=== PATIENT | male | born 1965 | race Caucasian/White ===

== ENCOUNTER 2024-01-16 06:46 | Day surgery (SDC) | payer BC, SELFPAY ==
[2024-01-16] VITALS (8 sets, daily range): BP systolic 133–157; BP diastolic 90–101; BMI 32.1
[2024-01-16] MEDS: TYLENOL 1000 MG PO (10:13)
--- NOTE | 2024-01-16 13:51 | W.IMMPOSTOP ---
Surgical Immed Post Op Note
-
Primary Surgeon: Sukhwinder De La Rosa MD
Assisting Surgeon:
Pre-op Diagnosis: right knee lateral meniscal tear
Post-op Diagnosis: right lateral meniscal tear
Procedure Performed: right knee arthroscopic partial lateral meniscectomy
Anesthesia Type: general
Specimen / Cultures: none
Estimated Blood Loss: 5mL
Complications: none apparent
Operative Findings: complex lateral meniscal tear
Operative dictation #: [id number]
== END 2024-01-16 15:38 | disposition home or self-care (01) ==
LOC: SDS 06:46
PROVIDERS: ATTENDING PHYSICIAN Student in an Organized Health Care Education/Training Program
DX: S83.271A Complex tear of lateral meniscus, current injury, right knee, initial encounter (principal); X58.XXXA Exposure to other specified factors, initial encounter
CPT/HCPCS: 29881

== ENCOUNTER 2024-10-03 05:49 | Day surgery (SDC) | payer BC, SELFPAY ==
[2024-09-22 14:01] VITALS: BMI 32.5
[2024-10-03 06:05] VITALS: BP 132/82; BMI 32.5
[2024-10-03] MEDS: TYLENOL 1000 MG PO (06:18)
[2024-10-03] MEDS: CELEBREX 200 MG PO (06:18)
[2024-10-03] MEDS: NORMOSOL-R/PLASMALYTE-A 1000 IV (06:18)
[2024-10-03 08:15] VITALS: BP 104/80; BP 132/82
[2024-10-03 08:30] VITALS: BP 127/80
[2024-10-03 08:42] VITALS: BP 120/89
[2024-10-03 09:15] VITALS: BP 143/95
[2024-10-03 09:45] VITALS: BP 143/94
== END 2024-10-03 09:55 | disposition home or self-care (01) ==
LOC: SDS 05:49
PROVIDERS: ATTENDING PHYSICIAN Specialist; FAMILY PHYSICIAN Internal Medicine
DX: S83.281A Other tear of lateral meniscus, current injury, right knee, initial encounter (principal); X58.XXXA Exposure to other specified factors, initial encounter; M22.41 Chondromalacia patellae, right knee; M84.40XA Pathological fracture, unspecified site, initial encounter for fracture
CPT/HCPCS: 27524; 0707T; 29881; C1713; 36415; 73560; 76000; 93005; C1776